=== PATIENT | male | born 1965 | race Caucasian/White ===

== ENCOUNTER 2016-12-24 12:20 | Emergency (ER) | payer SELFPAY ==
[~2016-12-24] VITALS: Ht 193 cm; Wt 163.0 kg
[2016-12-24 12:21] VITALS: BP 130/91
== END 2016-12-24 13:14 | disposition home or self-care (01) ==
LOC: ED 12:50
DX: Z00.00 Encounter for general adult medical examination without abnormal findings (principal); M25.561 Pain in right knee
CPT/HCPCS: 99282